=== PATIENT | female | born 1940 | race Caucasian/White ===

== ENCOUNTER 2016-07-10 15:02 | Emergency (ER) | payer MEDICARE ==
--- NOTE | 2016-07-10 15:32 | RAD ---
WRIST- LEFT 3 VIEWS COMPARISON: None. HISTORY: Wrist pain from a fall today. FINDINGS: Views: Left wrist PA, oblique, and lateral. Bones: Transverse nondisplaced fracture, distal metaphysis of the left radius. Osteoporosis. Carpal bone alignment: Normal. Joint spacing: First carpometacarpal joint and mild narrowing and osteophytes. Soft tissues: Normal IMPRESSION: 1. Transverse nondisplaced fracture, distal metaphysis of the left radius.
--- NOTE | 2016-07-10 15:32 | RAD ---
FOREARM LEFT COMPARISON: None. HISTORY: Fall with left arm pain. FINDINGS: Views: Left forearm AP and lateral. Bones: Nondisplaced transverse fracture through the distal diaphysis of the left radius. Osteoporosis. Joint: Normal. Soft tissues: Normal. IMPRESSION: 1. Nondisplaced transverse fracture through the distal diaphysis of the left radius.
--- NOTE | 2016-07-10 15:33 | RAD ---
HAND-LEFT 3 VIEWS COMPARISON: None. HISTORY: Left hand pain from a fall. IMPRESSION: Views: Left hand PA, oblique, lateral. Bones: Transverse nondisplaced fracture, distal metaphysis of the left radius. Severe generalized osteopenia. Joints: Narrowing and osteophytes of the first carpometacarpal joint. Soft tissues: Normal. IMPRESSION: 1. Transverse nondisplaced fracture, distal metaphysis of the left radius. 2. Osteoporosis. 3. Osteoarthritis of the first carpometacarpal joint.
[2016-07-10] MEDS ORDERED: ACETAMINOPHEN 325 MG TABLET ONE (17:46)
[2016-07-10] MEDS ORDERED: IBUPROFEN 600 MG TABLET ONE (17:46)
== END 2016-07-10 18:58 | disposition home or self-care (01) ==
LOC: ED 15:02
DX: S52.502A Unspecified fracture of the lower end of left radius, initial encounter for closed fracture (principal); E78.5 Hyperlipidemia, unspecified; E78.00 Pure hypercholesterolemia, unspecified; W01.0XXA Fall on same level from slipping, tripping and stumbling without subsequent striking against object, initial encounter; Y93.01 Activity, walking, marching and hiking; Y92.9 Unspecified place or not applicable
CPT/HCPCS: 73090; 73130; 73110; 99283 ×2; A9270 ×2